=== PATIENT | female | born 1935 | race Caucasian/White ===

== ENCOUNTER 2019-07-12 18:38 | Emergency (ER) | payer MEDICARE ==
[~2019-07-12] VITALS: Ht 149.9 cm; Wt 54.5 kg
[2019-07-12] MEDS ORDERED: ACETAMINOPHEN TAB 650MG DOSE (2X325MG) PO ONE (19:30)
[2019-07-12] MEDS ORDERED: ASPI81TA85 PO (19:48)
[2019-07-12] MEDS ORDERED: FLUO10CA15 PO (19:48)
[2019-07-12] MEDS ORDERED: ATOR1TAB19 (19:48)
[2019-07-12] MEDS ORDERED: PROBCAP14 PO (19:48)
[2019-07-12] MEDS ORDERED: ROPI1TAB PO (19:48)
[2019-07-12] MEDS ORDERED: METO1TAB87 (19:48)
[2019-07-12] MEDS ORDERED: TRAV04OPD (19:48)
--- NOTE | 2019-07-12 19:48 | REPVR ---
PROCEDURE INFORMATION: Exam: CT Head Without Contrast Exam date and time: 07/12/2019 6:48 PM Age: 83 years old Clinical indication: Injury or trauma; Fall; Initial encounter; Concussion / head injury TECHNIQUE: Imaging protocol: Computed tomography of the head without contrast. Radiation optimization: All CT scans at this facility use at least one of these dose optimization techniques: automated exposure control; mA and/or kV adjustment per patient size (includes targeted exams where dose is matched to clinical indication); or iterative reconstruction. COMPARISON: No relevant prior studies available. FINDINGS: Brain: Global cerebral atrophy is consistent with patient's age. Decreased attenuation within the white matter tracts of both cerebral hemispheres is nonspecific but typically seen with small vessel disease/chronic white matter ischemic changes of aging. No intracranial hemorrhage or mass effect. Ventricles: Unremarkable. No ventriculomegaly. Bones/joints: Unremarkable. No acute fracture. Sinuses: Visualized sinuses are unremarkable. No fluid levels. Mastoid air cells: Visualized mastoid air cells are well aerated. Soft tissues: Unremarkable. IMPRESSION: No acute abnormality. Electronically signed by: Jp Islas On 07/12/2019 19:48:05 PM
--- NOTE | 2019-07-12 19:54 | REPVR ---
PROCEDURE INFORMATION: Exam: CT Cervical Spine Without Contrast Exam date and time: 07/12/2019 6:48 PM Age: 83 years old Clinical indication: Injury or trauma; Fall; Initial encounter; Blunt trauma TECHNIQUE: Imaging protocol: Computed tomography images of the cervical spine without contrast. Radiation optimization: All CT scans at this facility use at least one of these dose optimization techniques: automated exposure control; mA and/or kV adjustment per patient size (includes targeted exams where dose is matched to clinical indication); or iterative reconstruction. COMPARISON: No relevant prior studies available. FINDINGS: Vertebrae: Anterior spinal fusion is present from C5-C7 with anterior plate and screw fixation as well as interbody bone graft. The interbody bone graft appears completely incorporated. No fracture or subluxation. Discs/Spinal canal/Neural foramina: Degenerative disc disease and facet arthrosis is present above and below the spinal fusion. No bony spinal stenosis is identified. Soft tissues: Unremarkable. Lungs: Lung apices are clear. IMPRESSION: 1. No fracture or subluxation. 2. Postoperative changes as described above. 3. Degenerative spondylosis of the cervical spine. Electronically signed by: Jp Islas On 07/12/2019 19:54:09 PM
[2019-07-12 21:25] VITALS: BP 131/55
== END 2019-07-12 21:26 | disposition home or self-care (01) ==
LOC: M ED 18:38 → EDBD 18:38 → M ED 21:26
DX: S09.90XA Unspecified injury of head, initial encounter (principal); W01.190A Fall on same level from slipping, tripping and stumbling with subsequent striking against furniture, initial encounter; Y92.018 Other place in single-family (private) house as the place of occurrence of the external cause; I25.10 Atherosclerotic heart disease of native coronary artery without angina pectoris; K21.9 Gastro-esophageal reflux disease without esophagitis; Z87.442 Personal history of urinary calculi; Z88.0 Allergy status to penicillin; Z88.2 Allergy status to sulfonamides; Z79.02 Long term (current) use of antithrombotics/antiplatelets; Z79.82 Long term (current) use of aspirin; Z79.899 Other long term (current) drug therapy

== ENCOUNTER 2019-08-21 16:08 | Emergency (ER) | payer MEDICARE ==
[~2019-08-21] VITALS: Ht 152.4 cm; Wt 55.9 kg
[~2019-08-21 16:08] MED LIST: ASPI81TA85 PO; ATOR1TAB19; FLUO10CA15 PO; METO1TAB87; PROBCAP14 PO; ROPI1TAB3 PO; TRAV04OPD
[2019-08-21] MEDS ORDERED: ACETAMINOPHEN 325 MG TAB PO ONE (17:15)
--- NOTE | 2019-08-21 17:42 | REPVR ---
PROCEDURE INFORMATION: Exam: CT Head Without Contrast Exam date and time: 08/21/2019 5:15 PM Age: 83 years old Clinical indication: Injury or trauma; Fall; Initial encounter; Blunt trauma (contusions or hematomas) TECHNIQUE: Imaging protocol: Computed tomography of the head without contrast. Radiation optimization: All CT scans at this facility use at least one of these dose optimization techniques: automated exposure control; mA and/or kV adjustment per patient size (includes targeted exams where dose is matched to clinical indication); or iterative reconstruction. COMPARISON: CT Head without contrast 07/12/2019 6:48 PM FINDINGS: Brain: Small chronic lacunar infarctions anterior right anterior limb internal capsule and posterior right external capsular white matter. Mild hypoattenuating foci are noted in the anterior lateral ventricular periventricular white matter bilaterally. No intracranial hemorrhage. No mass or acute cortical infarction identified. Ventricles: Prominence of the ventricular system and subarachnoid spaces is consistent with the patient's age of 83 years. Bones/joints: Unremarkable. No acute fracture. Sinuses: Visualized sinuses are unremarkable. No fluid levels. Mastoid air cells: Visualized mastoid air cells are well aerated. Orbits: RIGHT prior cataract surgery. LEFT prior cataract surgery with lens replacement. Soft tissues: Unremarkable. Vasculature: Atherosclerotic calcifications are present involving the carotid artery siphons bilaterally. IMPRESSION: 1. Small chronic lacunar infarctions right capsular white matter. 2. Age appropriate supratentorial and infratentorial atrophy. 3. 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 4. No acute intracranial injury identified. Electronically signed by: Davis Garrett On 08/21/2019 17:42:02 PM
--- NOTE | 2019-08-21 17:46 | REPVR ---
PROCEDURE INFORMATION: Exam: CT Cervical Spine Without Contrast Exam date and time: 08/21/2019 5:15 PM Age: 83 years old Clinical indication: Injury or trauma; Fall; Initial encounter; Blunt trauma TECHNIQUE: Imaging protocol: Computed tomography images of the cervical spine without contrast. Radiation optimization: All CT scans at this facility use at least one of these dose optimization techniques: automated exposure control; mA and/or kV adjustment per patient size (includes targeted exams where dose is matched to clinical indication); or iterative reconstruction. COMPARISON: CT Spine,cervical w/o contrast 07/12/2019 6:48 PM FINDINGS: Vertebrae: Anterior cervical discectomy and fusion has been performed at the C5-C6 and C6-C7 levels. The intervertebral body grafts are fused as are the bilateral facet joints and laminae at these levels. The metallic hardware appears intact; the inferior left screw extends into the left C6-C7 disc space (series 207, image 39), without specific evidence of loosening. Discs/Spinal canal/Neural foramina: Moderate atlantodental osteoarthritis. Mild bilateral C2-C3 primary facet osteoarthritis. Moderately severe RIGHT C2-C3 neural foraminal narrowing. Moderate RIGHT C3-C4 primary facet osteoarthritis. Severe RIGHT C3-C4 neural foraminal narrowing. Moderate LEFT C4-C5 primary facet osteoarthritis. Severe RIGHT C6-C7 neural foraminal narrowing. C7-T1 degenerative disc disease. Soft tissues: Unremarkable. Lungs: Lung apices are normal. Vasculature: Left carotid atherosclerotic calcifications. IMPRESSION: 1. Postoperative changes as above. 2. No acute bony or hardware abnormality identified. 3. Degenerative changes as above. 4. No acute cervical spinal bony injury identified. Electronically signed by: Davis Garrett On 08/21/2019 17:45:51 PM
--- NOTE | 2019-08-21 18:27 | REP ---
Clinical: Trauma. Technique: AP, lateral, bilateral oblique and sunrise views of the left knee. Findings: Age-related osteopenia. No acute fracture or dislocation. No significant arthritic degenerative changes. No effusion. No subcutaneous emphysema or foreign body. Impression: Age-appropriate left knee radiographs. No acute fracture or dislocation. Electronically Signed by Raza Enrique MD 08/21/2019 06:19 P
--- NOTE | 2019-08-21 18:28 | REP ---
Clinical: Trauma. Technique: AP and lateral views of the thoracic spine. Findings: Age-related osteopenia and moderate/advanced multilevel degenerative spondylosis noted including bridging osteophytes, endplate sclerosis and space narrowing. Alignment and kyphosis maintained. No acute fracture / compression injury or subluxation identified. Impression: Multilevel degenerative changes. No acute fracture / compression injury or subluxation. Electronically Signed by Raza Enrique MD 08/21/2019 06:20 P
--- NOTE | 2019-08-21 18:30 | REP ---
Clinical: Trauma. Technique: Frontal view of the chest with four views of the left hemithorax. Findings: Frontal view of the chest demonstrates diffuse chronic interstitial changes and fibrosis/scarring. The cardiac silhouette is normal. Dual lead pacemaker noted along with evidence of prior cervical fixation. Images of the left hemithorax demonstrate osteopenia and age-related degenerative changes. No obvious or displaced rib fracture identified. Impression: No acute rib fracture. Electronically Signed by Raza Enrique MD 08/21/2019 06:22 P
--- NOTE | 2019-08-21 18:32 | REP ---
Clinical: Trauma. Technique: AP, lateral, bilateral oblique and coned-down views of the lumbosacral spine. Findings: Advanced multilevel degenerative disc osteophyte complexes noted throughout the visualized thoracic and lumbosacral spine. Findings include osteophytosis, endplate sclerosis, disc space narrowing and hypertrophic facet changes. No acute fracture / compression injury or subluxation. Impression: Advanced multilevel degenerative spondylosis. No acute fracture / compression injury or subluxation. Electronically Signed by Raaz Enrique MD 08/21/2019 06:24 P
[2019-08-21 18:51] VITALS: BP 157/72
== END 2019-08-21 18:53 | disposition home or self-care (01) ==
LOC: EDBD 16:08 → M ED 16:08
DX: S80.02XA Contusion of left knee, initial encounter (principal); S30.0XXA Contusion of lower back and pelvis, initial encounter; W01.0XXA Fall on same level from slipping, tripping and stumbling without subsequent striking against object, initial encounter; Y92.000 Kitchen of unspecified non-institutional (private) residence as the place of occurrence of the external cause; M80.08XA Age-related osteoporosis with current pathological fracture, vertebra(e), initial encounter for fracture; M47.817 Spondylosis without myelopathy or radiculopathy, lumbosacral region; M47.814 Spondylosis without myelopathy or radiculopathy, thoracic region; M47.812 Spondylosis without myelopathy or radiculopathy, cervical region; M25.78 Osteophyte, vertebrae; M51.34 Other intervertebral disc degeneration, thoracic region; M46.92 Unspecified inflammatory spondylopathy, cervical region; G46.5 Pure motor lacunar syndrome; E11.9 Type 2 diabetes mellitus without complications; I10 Essential (primary) hypertension; J44.9 Chronic obstructive pulmonary disease, unspecified; E78.5 Hyperlipidemia, unspecified; G89.29 Other chronic pain; M54.2 Cervicalgia; Z88.0 Allergy status to penicillin; Z88.2 Allergy status to sulfonamides; Z88.5 Allergy status to narcotic agent; Z88.8 Allergy status to other drugs, medicaments and biological substances; Z91.013 Allergy to seafood; Z79.82 Long term (current) use of aspirin; Z79.899 Other long term (current) drug therapy

== ENCOUNTER 2019-10-23 00:16 | Observation (INO) | payer MEDICARE ==
[~2019-10-23] VITALS: Ht 152.4 cm; Wt 57.8 kg
[~2019-10-23 00:16] MED LIST changes: -ATOR1TAB19; +ATOR1TAB19 PO; -METO1TAB87; +METO1TAB87 PO
[2019-10-23] MEDS ORDERED: ACETAMINOPHEN TAB 650MG DOSE (2X325MG) PO ONE (01:15)
--- NOTE | 2019-10-23 01:17 | REPVR ---
PROCEDURE INFORMATION: Exam: CT Head Without Contrast Exam date and time: 10/23/2019 12:46 AM Age: 83 years old Clinical indication: Injury or trauma; Fall; Initial encounter; Concussion / head injury; Consciousness not specified; Additional info: Fall, extensive bruising TECHNIQUE: Imaging protocol: Computed tomography of the head without contrast. Radiation optimization: All CT scans at this facility use at least one of these dose optimization techniques: automated exposure control; mA and/or kV adjustment per patient size (includes targeted exams where dose is matched to clinical indication); or iterative reconstruction. COMPARISON: CT Head without contrast 08/21/2019 5:13 PM FINDINGS: Brain: Patchy areas of hypoattenuation in the periventricular and subcortical white matter, consistent with chronic small vessel ischemic disease. No CT evidence of acute intracranial hemorrhage or acute territorial infarction. No significant mass effect or midline shift. Basal cisterns patent. Ventricles: Prominence of the cortical sulci, cisterns and ventricular system, consistent with cerebral and cerebellar volume loss. Bones/joints: No acute osseous abnormality. Sinuses: Grossly unremarkable. Mastoid air cells: Grossly unremarkable. Soft tissues: Grossly unremarkable. Vasculature: Calcific atherosclerotic disease in the cavernous internal carotid arteries. IMPRESSION: 1. No CT evidence of acute intracranial pathology. 2. Additional findings, as above. Electronically signed by: Nveille Crawley On 10/23/2019 01:16:45 AM
--- NOTE | 2019-10-23 01:20 | REPVR ---
PROCEDURE INFORMATION: Exam: CT Cervical Spine Without Contrast Exam date and time: 10/23/2019 12:46 AM Age: 83 years old Clinical indication: Injury or trauma; Fall; Initial encounter; Blunt trauma and concussion /head injury; Prior surgery; Surgery date: 6+ months; Surgery type: Fusion; Additional info: Fall, extensive bruising TECHNIQUE: Imaging protocol: Computed tomography images of the cervical spine without contrast. Axial, coronal and sagittal reformatted images were created and reviewed. Radiation optimization: All CT scans at this facility use at least one of these dose optimization techniques: automated exposure control; mA and/or kV adjustment per patient size (includes targeted exams where dose is matched to clinical indication); or iterative reconstruction. COMPARISON: CT Spine,cervical w/o contrast 08/21/2019 5:13 PM FINDINGS: Vertebrae: Osteopenia. Normal cervical lordosis. Minimal anterolisthesis of C3 on C4 and C4 on C5. Alignment otherwise anatomic. No CT evidence of acute fracture, dislocation or subluxation. Vertebral body heights maintained. Discs/Spinal canal/Neural foramina: Status post C5-C7 ACDF. Mild multilevel degenerative changes, characterized by disc space narrowing, osteophytosis and uncovertebral and facet joint hypertrophy. Mild multilevel spinal canal and neural foraminal narrowing. Soft tissues: Grossly unremarkable. Lungs: Grossly unremarkable. IMPRESSION: 1. No CT evidence of acute cervical spine traumatic injury. 2. Additional findings, as above. Electronically signed by: Neville Crawley On 10/23/2019 01:19:44 AM
--- NOTE | 2019-10-23 01:24 | REPVR ---
PROCEDURE INFORMATION: Exam: CT Chest Without Contrast Exam date and time: 10/23/2019 12:56 AM Age: 83 years old Clinical indication: Chest pain; Type not specified; Additional info: Fall, extensive bruising TECHNIQUE: Imaging protocol: Computed tomography of the chest without contrast. Axial, coronal and sagittal reformatted images were created and reviewed. Radiation optimization: All CT scans at this facility use at least one of these dose optimization techniques: automated exposure control; mA and/or kV adjustment per patient size (includes targeted exams where dose is matched to clinical indication); or iterative reconstruction. COMPARISON: CR Ribs uni W-PA CHEST ONLY LEFT 08/21/2019 5:22 PM FINDINGS: Tubes, catheters and devices: Left-sided pacemaker with leads followed to the right atrium and right ventricle. Lungs: Mildly hyperinflated. Mild linear stranding and groundglass, likely due to atelectasis and/or scarring. No focal consolidation. Mild bronchiectatic change. Right middle lobe calcified granuloma. Pleural space: Unremarkable. No pneumothorax. No pleural effusion. Heart: Unremarkable. No cardiomegaly. No pericardial effusion. Mediastinum: Small hiatal hernia. Aorta: [id number] atherosclerotic disease. No aneurysm. Lymph nodes: Small mediastinal lymph nodes, nonspecific in appearance. No pathologically enlarged lymph nodes. Bones/joints: No acute osseous abnormality. Osteopenia. Degenerative changes. Soft tissues: Unremarkable. IMPRESSION: 1. Limited noncontrast examination without CT evidence of acute intrathoracic traumatic injury. 2. Additional findings, as above. Electronically signed by: Neville Crawley On 10/23/2019 01:23:48 AM
--- NOTE | 2019-10-23 01:37 | REPVR ---
PROCEDURE INFORMATION: Exam: CT Abdomen And Pelvis Without Contrast Exam date and time: 10/23/2019 12:56 AM Age: 83 years old Clinical indication: Injury or trauma; Fall; Initial encounter; Concussion/head injury; Patient HX: Back pain; Additional info: Fall, extensive bruising TECHNIQUE: Imaging protocol: Computed tomography of the abdomen and pelvis without contrast. Axial, coronal and sagittal reformatted images were created and reviewed. Radiation optimization: All CT scans at this facility use at least one of these dose optimization techniques: automated exposure control; mA and/or kV adjustment per patient size (includes targeted exams where dose is matched to clinical indication); or iterative reconstruction. COMPARISON: CR Spine. Lumbosacral, complete 08/21/2019 5:22 PM FINDINGS: Liver: Unremarkable. Gallbladder and bile ducts: Cholelithiasis. Pancreas: Unremarkable. Spleen: Unremarkable. Adrenals: Unremarkable. Kidneys and ureters: No mass. No radiodense calculi. No hydronephrosis. Stomach and bowel: Moderate amount of retained stool in the colon. Colonic diverticulosis without evidence of diverticulitis. No obstruction. No bowel wall thickening. No pneumatosis. Appendix: Appendix not identified with certainty but no right lower quadrant inflammatory change to suggest acute appendicitis. Intraperitoneal space: No free fluid. No organized fluid collection. No free air. Vasculature: Moderate atherosclerotic disease. No aneurysm. Lymph nodes: No pathologically enlarged lymph nodes. Bladder: Unremarkable. Reproductive: Status post hysterectomy. Bones/joints: No acute osseous abnormality. Osteopenia. Degenerative changes. Soft tissues: 10.7 x 3.4 x 7 cm subcutaneous hematoma in the right mid to lower back. Moderate associated subcutaneous edema with overlying skin thickening. Other findings: Elevated right hemidiaphragm. IMPRESSION: 1. Limited noncontrast examination. 2. 10.7 x 3.4 x 7 cm subcutaneous hematoma in the right mid to lower back. 3. Additional findings, as above. Electronically signed by: Neville Crawley On 10/23/2019 01:36:26 AM
[2019-10-23 02:02] LABS: BASO % 0.3 % (0.0-1.0); EOS # 0.2 10^3/uL (0.0-0.5); EOS % 1.6 % (0.0-3.0); HEMATOCRIT 40.5 % (36.0-47.0); HEMOGLOBIN 13.3 g/dl (12.0-15.5); LYMPH # 2.5 10^3/uL (1.5-5.0); LYMPH % 20.9 % (24.0-44.0); MEAN CORPUSCULAR HEMOGLOBIN 30.4 pg (27.0-33.0); MEAN CORPUSCULAR HGB CONC 32.8 g/dl (32.0-36.5); MEAN CORPUSCULAR VOLUME 92.7 fl (80.0-96.0); MONO # 0.9 10^3/uL (0.0-0.8); MONO % 7.8 % (0.0-5.0); NEUTROPHILS # 8.2 10^3/uL (1.5-8.5); NEUTROPHILS % 68.9 % (36.0-66.0); PLATELET COUNT, AUTOMATED 190 10^3/uL (150-450); RED BLOOD COUNT 4.37 10^6/uL (4.00-5.40); WHITE BLOOD COUNT 11.9 10^3/uL (4.0-10.0)
[2019-10-23 02:09] LABS: BLOOD UREA NITROGEN 24 MG/DL (7-18); CARBON DIOXIDE LEVEL 29 MEQ/L (21-32); CHLORIDE LEVEL 104 MEQ/L (98-107); GLOMERULAR FILTRATION RATE > 60.0 (>32); GLUCOSE, FASTING 136 MG/DL (70-100); POTASSIUM SERUM 4.1 MEQ/L (3.5-5.1); SODIUM LEVEL 138 MEQ/L (136-145)
[2019-10-23 02:11] LABS: INR 1.05; PARTIAL THROMBOPLASTIN TIME 30.4 SECONDS (25.0-38.4); PROTHROMBIN TIME 13.4 SECONDS (11.8-14.0)
[2019-10-23] MEDS ORDERED: GLUCOSE 4 GM CHEW TABLET PO PRN (02:15)
[2019-10-23] MEDS ORDERED: GLUCAGON FOR INJ 1 MG VIAL (J1610) SC PRN (02:15)
[2019-10-23] MEDS ORDERED: DEXTROSE 50% 50 ML SYRINGE IV PRN (02:15)
[2019-10-23 02:35] LABS: HEMOGLOBIN A1c 7.2 %
[2019-10-23] MEDS ORDERED: ACET-683 PO (02:41)
[2019-10-23] MEDS ORDERED: ONDANSETRON 4MG/2ML VIAL (J2405 PER 1MG) IV PRN (02:45)
[2019-10-23] MEDS ORDERED: methocarbamoL 750 MG TAB PO PRN (02:45)
[2019-10-23] MEDS ORDERED: NS 500 ML IV ONE (02:45)
[2019-10-23] MEDS ORDERED: ONDANSETRON 4MG/2ML VIAL (J2405 PER 1MG) IV ONE (02:45)
[2019-10-23 03:00] VITALS: BP 97/43
--- NOTE | 2019-10-23 03:02 | HPEPDOC ---
[facility] Medical History & Physical Date of Admission Oct 23, 2019 Date of Service: Oct 23, 2019 Other Provider PCP: Francia Bernard MD, Padmini Mitchell NP Attending Physician: MAGED HAIRSTON MD History and Physical PRIMARY CARE PROVIDER: Padmini Mitchell FRUIT CULLER out of Francia Bernard's office ATTENDING: Dr. Maged Hairston CHIEF COMPLAINT: Fall HISTORY OF PRESENT ILLNESS: Patient is an 83 year old female presenting with chief complaint of mechanical fall. She states that a proximally 2300 hrs. on 10/22/2019 she was getting out of her bed to change from her depends diapers into regular underwear and reached for her walker which slipped one way and she went the other causing her to fall backwards hitting her mid back and flank. She was able to get back into her bed and call her daughter who called EMS. In the emergency department, a head CT, cervical spine CT, chest CT were all negative as was her initial blood work. However CT abdomen pelvis showed a 10.7 a 3.4 x 7 cm subcutaneous hematoma in the right mid to lower back. She states her back is painful lying still as well as when she attempts to move at all, hospital service was contacted for admission due to inability to control her pain and likely need for work with PT OT and acute rehabilitation as this was her third mechanical fall. She denies hitting her head, loss of consciousness, headache, dizziness, chest pain, difficulty breathing, palpitations, abdominal pain, nausea, vomiting, change in her stool consistency, dysuria, leg weakness. Of note she does admit to chronic diplopia that she was supposed to see neurology and opthalmology for but in light of the recent COVID pandemic has been unable to go. PAST MEDICAL HISTORY: Hypercholesterolemia Restless leg syndrome History of anxiety History of diplopia Impaired fasting glucose History of anemia History of mechanical falls History of symptomatic bradycardia requiring pacemaker placement PAST SURGICAL HISTORY: 04/2019 pacemaker placement C-sections X2 Hysterectomy Cervical disc fusion SOCIAL HISTORY: Denies alcohol use, denies use of tobacco products, denies any marijuana, heroin, cocaine, or PCP use. Retired teacher. No Pets at home. FAMILY HISTORY: Motherhistory of diabetes, CHF Fatherdied of ID at 79 years old ALLERGIES: Please see below. REVIEW OF SYSTEMS: GENERAL: Denies fevers, chills, HEENT: Denies headache, dizziness, vision changes, hearing loss, sore throat. 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 Admits to mild constipation. GENITOURINARY: Denies dysuria, urinary urgency, hematuria. Admits to chronic overflow incontinence. MUSCULOSKELETAL: Denies weakness, stiffness. Admits to back pain. NEUROLOGICAL: Denies any numbness/tingling, focal weakness, or syncope HOME MEDICATIONS: Please see below. PHYSICAL EXAMINATION: Vitals: (see below) General: No acute distress, laying on her left side in bed. HEENT: Normocephalic, atraumatic. EOMI. No scleral icterus. Moist mucous membranes. No pharyngeal erythema or uvular deviation. Neck: No JVD, lymphadenopathy, or thyromegaly. Cardiac: RRR, normal S1 and S2, systolic murmur, No gallops, rubs. Pulm: Clear to auscultation b/l. Symmetric thorax. No wheezing, crackles, rhonchi Abd: Abdomen is soft, non-tender, non-distended. Thoracic region showing areas of bruising spanning to bilateral flanks. Hematoma is easily palpable on exam and is tender to touch with gentle palpation. Ext: No edema or cyanosis Neuro: CN 2-12 intact. No focal neurologic deficits LABORATORY DATA: See below. IMAGIN10/23/[address]: 1. No CT evidence of acute intracranial pathology 2. Other noncontributory to chief complaint findings detailed in radiology note 10/23/[address]: 1. No CT evidence of acute cervical spine traumatic injury 2. Status post C5-C7 ACDF 3. Other noncontributory to chief complaint findings detailed in radiology note 10/23/[address]: 1. Limited noncontrast examination without CT evidence of acute intrathoracic traumatic injury. 2. Other noncontributory to chief complaint findings detailed in radiology note 10/23/2019 CT abdomen and pelvis: 1. Limited noncontrast examination. 2. 10.7 x 3.4 x 7 cm subcutaneous hematoma in the right mid to lower back 3. Other noncontributory to chief complaint findings detailed in radiology note MICROBIOLOGY: Please see below. ASSESSMENT/PLAN: #. Mechanical fall - Patient will be admitted for pain control as well as PT/OT, ARU screening in light of her multiple mechanical falls. - Starting patient on tylenol, lidocaine patch, and robaxin for pain control. #. Hematoma -Will trend H/H, hgb stable on admission -If pain worsens or hematoma enlarges may need to consider surgical evacuation of hematoma in the future. #. Generalized anxiety disorder -Continue home Prozac #. Status post pacemaker placement -Patient follows with Dr. Clark in [place] at [facility] -I am unclear why she is on metoprolol, but for the time being we will continue this with holding parameters #. Impaired fasting glucose -Patient's A1c elevated at 7.2. F/u with PCP outpatient. #. Hypercholesterolemia -Continue home atorvastatin #. Restless leg syndrome -Continue home Requip -DVT prophy: Teds and sequentials, holding anticoagulants in light of hematoma. CODE STATUS: DNR w/ trial of intubation. Patient states she filled out a molst form several months ago at home. Vital Signs Vital Signs Date Time Temp Pulse Resp B/P (MAP) Pulse Ox O2 Delivery O2 Flow Rate FiO2 10/23/19 02:30 96/54 (68) 10/23/19 02:16 65 18 96 Room Air 10/23/19 00:25 98.3 Laboratory Data Labs 24H Laboratory Tests 2 10/23/19 00:40: Immature Granulocyte % (Auto) 0.5, Neutrophils (%) (Auto) 68.9H, Lymphocytes (%) (Auto) 20.9L, Monocytes (%) (Auto) 7.8H, Eosinophils (%) (Auto) 1.6, Basophils (%) (Auto) 0.3, Neutrophils # (Auto) 8.2, Lymphocytes # (Auto) 2.5, Monocytes # (Auto) 0.9H, Eosinophils # (Auto) 0.2, Basophils # (Auto) 0.0, Nucleated Red Blood Cells % (auto) 0.0, Prothrombin Time 13.4, Prothromb Time International Ratio 1.05, Activated Partial Thromboplast Time 30.4, Anion Gap 5L, Glomerular Filtration Rate > 60.0, Estimated Mean Plasma Glucose 160H, Hemoglobin A1c 7.2, Calcium Level 9.0 10/23/19 00:50: POC Glucose (Misc Panel) 145H, POC Sodium (Misc Panel) 138, POC Potassium (Misc Panel) 3.9, POC Chloride (Misc Panel) 101, POC Total CO2 (Misc Panel) 27.0, POC Blood Urea Nitrogen (Misc Panel 22, POC Ionized Calcium (Misc Panel) 4.7, POC Creatinine (Misc Panel) 0.8, POC Hematocrit (Misc Panel) 39.0 CBC/BMP Laboratory Tests 10/23/19 00:40 Home Medications Scheduled Acetaminophen (Acetaminophen) 500 Mg Tablet, 500 MG PO BID Aspirin (Aspir 81) 81 Mg Tablet.dr, 81 MG PO QHS Atorvastatin Calcium (Atorvastatin Calcium) 10 Mg Tablet, 10 MG PO QHS Fluoxetine Hcl (Fluoxetine HCl) 10 Mg Capsule, 10 MG PO DAILY Metoprolol Tartrate (Metoprolol Tartrate) 25 Mg Tablet, 12.5 MG PO BID Ropinirole HCl (Ropinirole HCl) 1 Mg Tablet, 1 MG PO QHS Allergies Coded Allergies: Penicillins (Verified Allergy, Severe, sob, 10/23/19) Sulfa (Sulfonamide Antibiotics) (Verified Allergy, Severe, sob, 10/23/19) shellfish derived (Verified Allergy, Severe, anyphylaxis, 10/23/19) procaine (Verified Allergy, Mild, rash, 10/23/19) iodine (Verified Allergy, Unknown, 10/23/19) codeine (Verified Adverse Reaction, Mild, nausea, 10/23/19) morphine (Verified Adverse Reaction, Mild, sick to my stomach, 10/23/19) A-FIB/CHADSVASC A-FIB History Current/History of A-Fib/PAF?: No GME ATTESTATION GME ATTESTATION My faculty preceptor for this patient encounter was physically present during the encounter and was fully available. All aspects of the patient interview, examination, medical decision making process, and medical care plan development were reviewed and approved by the faculty preceptor. The faculty preceptor is aware and concurs with the plan as stated in the body of this note and will attest to such by his/her cosignature. ATTENDING NOTE HOSPITALIST ATTENDING PHYSICIAN ADDENDUM: I have independently interviewed and examined the patient at the bedside, and agree with the documented history, clinical findings, and management plan as outlined above by my resident physician. The patient's concerns and questions have been satisfactorily addressed. Patient has been encouraged to contact our Hospitalist Program for any new concerns at [phone]. DAVID JOHNSON DO Oct 23, 2019 03:02 MAGED HAIRSTON MD Oct 23, 2019 20:10
[2019-10-23] MEDS ORDERED: NS 1,000 ML IV ONE (03:45)
[2019-10-23 06:00] VITALS: BP 111/52
[2019-10-23] MEDS ORDERED: HumaLOG INSULIN (NovoLOG) PER UNIT SC SCH ×2 (07:30→21:00)
[2019-10-23] MEDS: METOPROLOL TART 12.5 MG PER 1/2 TAB PO SCH ×2 (07:47→20:33)
[2019-10-23 07:49] VITALS: BP 110/59
[2019-10-23] MEDS: LIDOCAINE 5% (LIDODERM) PATCH TD SCH (08:21)
[2019-10-23] MEDS: FLUoxetine 10 MG CAP PO SCH (08:22)
[2019-10-23] MEDS: ACETAMINOPHEN TAB 650MG DOSE (2X325MG) PO PRN ×2 (08:22→20:18)
--- NOTE | 2019-10-23 11:44 | IPNPDOC ---
Text Note Date of Service The patient was seen on 10/23/19. NOTE Subjective: Patient complains of sore right flank area. Patient denies fever, chills, nausea, vomiting, chest pain, palpitations, diarrhea or dysuria Objective: GENERAL: awake, alert, NAD HEENT: NCAT, anicteric sclera, HITESH NECK: supple, no JVD CARDIOVASCULAR EXAMINATION: NS1S2, regular rate/rhythm RESPIRATORY EXAMINATION: CTA b/l, no wheezes/rales/rhonchi ABDOMINAL EXAMINATION: positive bowel sounds x 4, NT EXTREMITIES: no cyanosis, clubbing, edema Musculoskeletal: There is large extended hematoma or the right flank area SKIN: warm, no rashes. NEUROLOGICAL EXAMINATION: AAO x 3, no motor/sensory deficits PSYCHIATRIC EXAMINATION: calm, normal affect Assessment and plan: Patient is 83 years old female with past mental history of anxiety, anemia, mechanical falls presented hospital after mechanical fall. Imaging studies were negative for acute bleeding or fractures. Mechanical fall Multiple mechanical falls in the past. Patient has diplopia of unknown etiology for now. Patient is supposed to have an appointment with coding specialist and neurologist on the next week. CT head negative for mass or acute bleed. Pain management PT/OT Hematoma Patient is normotensive, hemoglobin stable CT showed 10.7 x 3.4 x 7 cm subcutaneous hematoma in the right mid to lower back No signs or symptoms of acute bleed H&H every 6 hours Anxiety Continue home meds Hypercholesterolemia Continue statin Restless leg syndrome Requip Diabetes type 2 Patient does not take diabetes medication HbA1c 7.2 which is appropriate number for patient age Diabetes diet VS,Fishbone, I+O VS, Fishbone, I+O Laboratory Tests 10/23/19 00:40 Vital Signs Date Time Temp Pulse Resp B/P (MAP) Pulse Ox O2 Delivery O2 Flow Rate FiO2 10/23/19 07:49 110/59 (76) 10/23/19 06:00 99.2 81 18 96 Room Air I&O- Last 24 Hours up to 6 AM 10/23/19 06:00 Intake Total 0 ml Balance 0 ml REDDY MCMULLEN DO Oct 23, 2019 11:44
[2019-10-23 12:32] LABS: HEMATOCRIT 33.6 % (36.0-47.0)
[2019-10-23 12:38] LABS: HEMOGLOBIN 11.1 g/dl (12.0-15.5)
[2019-10-23 14:35] VITALS: BP 119/55
[2019-10-23 16:08] LABS: HEMATOCRIT 33.8 % (36.0-47.0)
[2019-10-23 19:28] VITALS: BP 104/43
[2019-10-23 20:06] LABS: HEMATOCRIT 31.7 % (36.0-47.0); HEMOGLOBIN 10.4 g/dl (12.0-15.5)
[2019-10-23] MEDS ORDERED: **NOTE PATIENT COMMENT** MISC XX SCH (21:00)
[2019-10-23] MEDS ORDERED: ATORVASTATIN 10 MG TAB PO SCH (21:00)
[2019-10-23] MEDS ORDERED: rOPINIRole 1MG TAB PO SCH (21:00)
[2019-10-24 00:06] LABS: HEMATOCRIT 31.3 % (36.0-47.0); HEMOGLOBIN 10.5 g/dl (12.0-15.5)
[2019-10-24 04:16] LABS: HEMATOCRIT 32.5 % (36.0-47.0); HEMOGLOBIN 10.7 g/dl (12.0-15.5); MEAN CORPUSCULAR HEMOGLOBIN 30.7 pg (27.0-33.0); MEAN CORPUSCULAR HGB CONC 32.9 g/dl (32.0-36.5); MEAN CORPUSCULAR VOLUME 93.1 fl (80.0-96.0); PLATELET COUNT, AUTOMATED 146 10^3/uL (150-450); RED BLOOD COUNT 3.49 10^6/uL (4.00-5.40); WHITE BLOOD COUNT 7.1 10^3/uL (4.0-10.0)
[2019-10-24 04:35] VITALS: BP 150/70
[2019-10-24] MEDS: ACETAMINOPHEN TAB 650MG DOSE (2X325MG) PO PRN (04:35)
[2019-10-24 04:36] LABS: BLOOD UREA NITROGEN 12 MG/DL (7-18); CALCIUM LEVEL 7.6 MG/DL (8.8-10.2); CARBON DIOXIDE LEVEL 27 MEQ/L (21-32); CHLORIDE LEVEL 108 MEQ/L (98-107); GLOMERULAR FILTRATION RATE > 60.0 (>32); GLUCOSE, FASTING 143 MG/DL (70-100); POTASSIUM SERUM 3.8 MEQ/L (3.5-5.1); SODIUM LEVEL 142 MEQ/L (136-145)
[2019-10-24 07:54] LABS: HEMATOCRIT 31.5 % (36.0-47.0); HEMOGLOBIN 10.5 g/dl (12.0-15.5)
[2019-10-24 07:59] VITALS: BP 139/67
[2019-10-24] MEDS: METOPROLOL TART 12.5 MG PER 1/2 TAB PO SCH (07:59)
[2019-10-24] MEDS: LIDOCAINE 5% (LIDODERM) PATCH TD SCH (08:00)
[2019-10-24] MEDS: FLUoxetine 10 MG CAP PO SCH (08:00)
--- NOTE | 2019-10-24 15:02 | DS.PDOC ---
Discharge Summary General Date of Admission Oct 23, 2019 at 00:17 Date of Discharge 10/24/19 Discharge Summary PROCEDURES PERFORMED DURING STAY: [None]. ADMITTING DIAGNOSES: Mechanical fall Hematoma Anxiety Hypercholesterolemia Restless leg syndrome Diabetes type 2 DISCHARGE DIAGNOSES: 1. . COMPLICATIONS/CHIEF COMPLAINT: Traumatic Hematoma Of Lower Back. HISTORY OF PRESENT ILLNESS: Patient is 83 years old female with past mental history of anxiety, anemia, mechanical falls presented hospital after mechanical fall. Imaging studies were negative for acute bleeding or fractures. HOSPITAL COURSE: During hospital stay following issue addressed Multiple mechanical falls in the past. Patient has diplopia of unknown etiology for now. Patient is supposed to have an appointment with exceptional student education aide and neurologist on the next week. CT head negative for mass or acute bleed. Pain management Hematoma Patient is normotensive, hemoglobin stable CT showed 10.7 x 3.4 x 7 cm subcutaneous hematoma in the right mid to lower back No signs or symptoms of acute bleed Anxiety Continue home meds Hypercholesterolemia Continue statin Restless leg syndrome Requip Diabetes type 2 Patient does not take diabetes medication HbA1c 7.2 which is appropriate number for patient age Diabetes diet DISCHARGE MEDICATIONS: Please see below. ALLERGIES: Please see below. PHYSICAL EXAMINATION ON DISCHARGE: VITAL SIGNS: Please see below. GENERAL: awake, alert, NAD HEENT: NCAT, anicteric sclera, HITESH NECK: supple, no JVD CARDIOVASCULAR EXAMINATION: NS1S2, regular rate/rhythm RESPIRATORY EXAMINATION: CTA b/l, no wheezes/rales/rhonchi ABDOMINAL EXAMINATION: positive bowel sounds x 4, NT EXTREMITIES: no cyanosis, clubbing, edema Musculoskeletal: There is large extended hematoma or the right flank area SKIN: warm, no rashes. NEUROLOGICAL EXAMINATION: AAO x 3, no motor/sensory deficits PSYCHIATRIC EXAMINATION: calm, normal affect LABORATORY DATA: Please see below. IMAGIN10/23/[address]: 1. No CT evidence of acute intracranial pathology 2. Other noncontributory to chief complaint findings detailed in radiology note 10/23/[address]: 1. No CT evidence of acute cervical spine traumatic injury 2. Status post C5-C7 ACDF 3. Other noncontributory to chief complaint findings detailed in radiology note 10/23/[address]: 1. Limited noncontrast examination without CT evidence of acute intrathoracic traumatic injury. 2. Other noncontributory to chief complaint findings detailed in radiology note 10/23/2019 CT abdomen and pelvis: 1. Limited noncontrast examination. 2. 10.7 x 3.4 x 7 cm subcutaneous hematoma in the right mid to lower back 3. Other noncontributory to chief complaint findings detailed in radiology note PROGNOSIS: Fair ACTIVITY: [As tolerated]. DIET: Cardiac DISPOSITION: 06 Home Health Service. ITEMS TO FOLLOWUP ON ON OUTPATIENT: Follow-up with PCP DISCHARGE CONDITION: [Stable]. TIME SPENT ON DISCHARGE: Greater than 20 minutes. Vital Signs/I&Os Vital Signs Date Time Temp Pulse Resp B/P (MAP) Pulse Ox O2 Delivery O2 Flow Rate FiO2 10/24/19 07:59 84 139/67 10/24/19 04:35 98.6 18 97 Room Air I&O- Last 24 Hours up to 6 AM 10/24/19 06:00 Intake Total 2220 ml Output Total 1650 ml Balance 570 ml Laboratory Data Labs 24H Laboratory Tests 2 10/23/19 19:30: Bedside Glucose (Misc Panel) 208H 10/24/19 04:03: Nucleated Red Blood Cells % (auto) 0.0, Anion Gap 7L, Glomerular Filtration Rate > 60.0, Calcium Level 7.6#L CBC/BMP Laboratory Tests 10/23/19 15:56 10/23/19 19:58 10/23/19 23:43 10/24/19 04:03 10/24/19 07:43 FSBS Laboratory Tests Test 10/23/19 19:30 Range/Units Bedside Glucose (Misc Panel) 208 83-110 MG/DL Discharge Medications Scheduled Acetaminophen (Acetaminophen) 500 Mg Tablet, 500 MG PO BID, (Reported) Aspirin (Aspir 81) 81 Mg Tablet.dr, 81 MG PO QHS, (Reported) Atorvastatin Calcium (Atorvastatin Calcium) 10 Mg Tablet, 10 MG PO QHS, (Reported) Fluoxetine Hcl (Fluoxetine HCl) 10 Mg Capsule, 10 MG PO DAILY, (Reported) Metoprolol Tartrate (Metoprolol Tartrate) 25 Mg Tablet, 12.5 MG PO BID, (Reported) Ropinirole HCl (Ropinirole HCl) 1 Mg Tablet, 1 MG PO QHS, (Reported) Allergies Coded Allergies: Penicillins (Verified Allergy, Severe, sob, 10/23/19) Sulfa (Sulfonamide Antibiotics) (Verified Allergy, Severe, sob, 10/23/19) shellfish derived (Verified Allergy, Severe, anyphylaxis, 10/23/19) procaine (Verified Allergy, Mild, rash, 10/23/19) iodine (Verified Allergy, Unknown, 10/23/19) codeine (Verified Adverse Reaction, Mild, nausea, 10/23/19) morphine (Verified Adverse Reaction, Mild, sick to my stomach, 10/23/19) REDDY MCMULLEN DO Oct 24, 2019 15:02
== END 2019-10-24 12:13 | disposition home health service (06) ==
LOC: M ED 00:16 → M ED INP 00:17 → ENRESERVDT 02:27 → ENRESERVTM 02:27 → M MS5PR 02:54
PROVIDERS: ADMIT General Practice; ATTEND Internal Medicine
DX: S30.0XXA Contusion of lower back and pelvis, initial encounter (principal); W01.0XXA Fall on same level from slipping, tripping and stumbling without subsequent striking against object, initial encounter; Y92.003 Bedroom of unspecified non-institutional (private) residence as the place of occurrence of the external cause; Y93.9 Activity, unspecified; Y99.9 Unspecified external cause status; F41.9 Anxiety disorder, unspecified; E78.00 Pure hypercholesterolemia, unspecified; G25.81 Restless legs syndrome; E11.9 Type 2 diabetes mellitus without complications; H53.2 Diplopia; Z79.82 Long term (current) use of aspirin; Z79.899 Other long term (current) drug therapy; Z88.0 Allergy status to penicillin; Z88.2 Allergy status to sulfonamides; Z91.013 Allergy to seafood; Z88.5 Allergy status to narcotic agent; Z91.041 Radiographic dye allergy status; Z95.0 Presence of cardiac pacemaker
CPT/HCPCS: 36415; 70450; 71250; 72125; 74176; 80047; 80048; 83036; 85014; 85018; 85025; 85027; 85610; 85730; 96361; 96374; 96375; 97116; 97161; 97165; 97530; 99285; G0378; J2405

== ENCOUNTER 2019-10-28 16:09 | Emergency (ER) | payer MEDICARE ==
[~2019-10-28] VITALS: Ht 165.1 cm; Wt 59.2 kg
[~2019-10-28 16:09] MED LIST changes: +ACET-683 PO
[2019-10-28] MEDS ORDERED: FOSFOMYCIN TROMETHAMINE 3 GM POWDER PACKET (MONUROL) PO ONE (17:00)
[2019-10-28 18:32] VITALS: BP 118/58
== END 2019-10-28 19:05 | disposition home or self-care (01) ==
LOC: M ED 16:09
DX: S30.0XXA Contusion of lower back and pelvis, initial encounter (principal); R35.0 Frequency of micturition; E11.9 Type 2 diabetes mellitus without complications; E78.5 Hyperlipidemia, unspecified; G25.81 Restless legs syndrome; F41.9 Anxiety disorder, unspecified; Z95.0 Presence of cardiac pacemaker; Z91.81 History of falling; Z88.0 Allergy status to penicillin; Z88.2 Allergy status to sulfonamides; Z88.8 Allergy status to other drugs, medicaments and biological substances; Z88.5 Allergy status to narcotic agent; Z88.4 Allergy status to anesthetic agent; Z91.013 Allergy to seafood; Z79.899 Other long term (current) drug therapy; Z79.82 Long term (current) use of aspirin

== ENCOUNTER 2022-03-12 11:55 | Emergency (ER) | payer MEDICARE ==
[~2022-03-12 11:55] MED LIST changes: -ASPI81TA85 PO; +ASPI81TA86 PO; -FLUO10CA15 PO; +FLUO10CA18 PO
[2022-03-12] MEDS ORDERED: ACETAMINOPHEN TAB 650MG DOSE (2X325MG) PO ONE (13:40)
[2022-03-12 13:45] VITALS: BP 177/79
== END 2022-03-12 14:04 | disposition home or self-care (01) ==
LOC: M ED 11:55
DX: S00.93XA Contusion of unspecified part of head, initial encounter (principal); S10.93XA Contusion of unspecified part of neck, initial encounter; S20.229A Contusion of unspecified back wall of thorax, initial encounter; W19.XXXA Unspecified fall, initial encounter; I10 Essential (primary) hypertension; E11.9 Type 2 diabetes mellitus without complications; K21.9 Gastro-esophageal reflux disease without esophagitis; Z88.0 Allergy status to penicillin; Z88.2 Allergy status to sulfonamides; Z88.5 Allergy status to narcotic agent; Z88.6 Allergy status to analgesic agent; Z91.013 Allergy to seafood; Z79.899 Other long term (current) drug therapy; Y92.009 Unspecified place in unspecified non-institutional (private) residence as the place of occurrence of the external cause; Y93.9 Activity, unspecified; Y99.9 Unspecified external cause status

== ENCOUNTER 2022-03-19 08:18 | Emergency (ER) | payer MEDICARE ==
[2022-03-19 09:43] LABS: BASO % 0.3 % (0.0-1.0); EOS # 0.2 10^3/uL (0.0-0.5); HEMATOCRIT 43.6 % (36.0-47.0); HEMOGLOBIN 14.9 g/dl (12.0-15.5); LYMPH # 1.8 10^3/uL (1.5-5.0); LYMPH % 22.7 % (24.0-44.0); MEAN CORPUSCULAR HEMOGLOBIN 30.5 pg (27.0-33.0); MEAN CORPUSCULAR HGB CONC 34.2 g/dl (32.0-36.5); MEAN CORPUSCULAR VOLUME 89.2 fl (80.0-96.0); MONO # 0.6 10^3/uL (0.0-0.8); MONO % 7.5 % (2.0-8.0); NEUTROPHILS # 5.4 10^3/uL (1.5-8.5); NEUTROPHILS % 67.1 % (36.0-66.0); PLATELET COUNT, AUTOMATED 195 10^3/uL (150-450); RED BLOOD COUNT 4.89 10^6/uL (4.00-5.40)
[2022-03-19 10:48] LABS: BLOOD UREA NITROGEN 15 MG/DL (7-18); CALCIUM LEVEL 9.1 MG/DL (8.8-10.2); CARBON DIOXIDE LEVEL 29 MEQ/L (21-32); CHLORIDE LEVEL 100 MEQ/L (98-107); GLOMERULAR FILTRATION RATE > 60.0 (>32); GLUCOSE, FASTING 147 MG/DL (70-100); SODIUM LEVEL 130 MEQ/L (136-145)
[2022-03-19 10:56] LABS: RSV AMPLIFICATION NEGATIVE (NEGATIVE)
[2022-03-19 10:59] LABS: ALBUMIN 3.6 GM/DL (3.2-5.2); BILIRUBIN,DIRECT 0.1 MG/DL (0.0-0.2); BILIRUBIN,TOTAL 0.4 MG/DL (0.2-1.0); TOTAL PROTEIN 6.9 GM/DL (6.4-8.2)
[2022-03-19 11:30] VITALS: BP 146/64
== END 2022-03-19 12:32 | disposition short-term general hospital (02) ==
LOC: M ED 08:18
DX: S06.360A Traumatic hemorrhage of cerebrum, unspecified, without loss of consciousness, initial encounter (principal); U07.1 COVID-19; E11.9 Type 2 diabetes mellitus without complications; I10 Essential (primary) hypertension; K21.9 Gastro-esophageal reflux disease without esophagitis; Z88.0 Allergy status to penicillin; Z88.2 Allergy status to sulfonamides; Z88.5 Allergy status to narcotic agent; Z91.013 Allergy to seafood; Z95.0 Presence of cardiac pacemaker; Z79.899 Other long term (current) drug therapy